=== PATIENT | female | born 1965 | race Caucasian/White ===

== ENCOUNTER 2016-06-03 18:10 | Emergency (ER) | payer BC ==
[~2016-06-03] VITALS: Ht 160 cm; Wt 87.0 kg
[~2016-06-03 18:10] MED LIST: ASPIR-LOW81 MG PO; CALCIUM 500 MG1 EACH PO; CYCLOBENZAPRINE10 MG PO; DAILY VALUE1 EACH PO; DYAZIDE, MA1 CAPSULE PO; GABAPENTIN300 MG PO; HYDROCODON-ACE1 EAC7 PO; LOPRESSOR25 MG PO; MAGNESIUM OXID200 MG PO; MEDROL DOSEPAK4 MG PO; SYNTHROID150 MCG PO
[2016-06-03 20:05] VITALS: BP 161/99
== END 2016-06-03 20:05 | disposition home or self-care (01) ==
LOC: EME 18:10
DX: I10 Essential (primary) hypertension (principal); E03.9 Hypothyroidism, unspecified; Z88.0 Allergy status to penicillin
CPT/HCPCS: 99281; 99284

== ENCOUNTER 2016-07-11 13:42 | Emergency (ER) | payer BC ==
[~2016-07-11] VITALS: Ht 160 cm; Wt 83.3 kg
[2016-07-11] MEDS ORDERED: LOPRESSOR50 MG PO (15:13)
[2016-07-11] MEDS ORDERED: CYTOMEL5 MCG PO (15:14)
[2016-07-11 18:40] VITALS: BP 156/96
== END 2016-07-11 18:46 | disposition home or self-care (01) ==
LOC: EME 13:42
DX: I10 Essential (primary) hypertension (principal); M54.12 Radiculopathy, cervical region; E03.9 Hypothyroidism, unspecified; Z98.1 Arthrodesis status; Z87.891 Personal history of nicotine dependence
CPT/HCPCS: 70450; 72125; 99281; 99284

== ENCOUNTER 2016-11-18 06:42 | Emergency (ER) | payer BC ==
[~2016-11-18] VITALS: Ht 160 cm; Wt 80.8 kg
[~2016-11-18 06:42] MED LIST changes: +CYTOMEL5 MCG PO; +LOPRESSOR50 MG PO
[2016-11-18] MEDS ORDERED: AMLODIPINE BESYL5 MG PO (07:14)
[2016-11-18] MEDS ORDERED: DEBLITANE0.35 MG PO (07:14)
[2016-11-18 07:24] LABS: HEMATOCRIT 43.9 % (36.0-46.0); MCV 90.9 FL (83-99); MEAN PLAT.VOLUME 11.2 uM^3 (9.5-12.4); PLATELET COUNT 237 K/uL (156-360); RBC DIS.WIDTH-CV 12.2 % (11.8-14.6); RBC DIS.WIDTH-SD 40.6 % (39-53); RED BLOOD COUNT 4.83 M/uL (3.80-5.20); WHITE BLOOD COUNT 7.8 K/uL (4.1-10.2)
[2016-11-18 07:27] LABS: ADD MIUA? YES; BILIRUBIN NEGATIVE; BLOOD MODERATE; COLOR STRAW ((YELLOW)); GLUCOSE (STRIP) NEGATIVE; KETONES NEGATIVE; LEUKOCYTES NEGATIVE; NITRITE NEGATIVE; PROTEIN (STRIP) NEGATIVE; SPECIFIC GRAVITY 1.003 (1.000-1.030); UROBILINOGEN 0.2 MG/DL (0.2-1.0)
[2016-11-18 07:30] LABS: BACTERIA NONE SEEN /HPF; EPITHELIAL CELLS NONE SEEN /HPF; MUCUS NONE SEEN /LPF; RED BLOOD CELLS 0-5 /HPF (0-5); UCUL ADDED? NO; WHITE BLOOD CELLS 0-5 /HPF (0-5)
[2016-11-18 08:10] LABS: ANION GAP 10 MEQ/L (2-14); CHLORIDE 105 MEQ/L (99-109); POTASSIUM 3.9 MEQ/L (3.7-5.4); SAMPLE HEMOLYSIS CHECK 0; SAMPLE ICTERIC CHECK 0; SAMPLE LIPEMIA CHECK 0; SODIUM 140 MEQ/L (136-147); TOTAL BILIRUBIN 0.6 MG/DL (0.0-1.0)
[2016-11-18 08:16] LABS: ALKALINE PHOSPHATASE 60 IU/L (3-129); GFR ESTIMATE (CALCULATED) > 59 mL/min/; GLUCOSE 97 mg/dL (70-99); UREA NITROGEN (BUN) 11 mg/dL (9-23)
[2016-11-18 08:18] LABS: QUANTITATIVE HCG < 4.0 MIU/ML
[2016-11-18] MEDS ORDERED: NAPROSYN500 MG PO (09:49)
[2016-11-18 10:22] VITALS: BP 117/86
== END 2016-11-18 10:27 | disposition home or self-care (01) ==
LOC: EME 06:42
DX: N93.8 Other specified abnormal uterine and vaginal bleeding (principal); R10.32 Left lower quadrant pain; I10 Essential (primary) hypertension; E03.9 Hypothyroidism, unspecified; Z87.891 Personal history of nicotine dependence; Z98.1 Arthrodesis status
CPT/HCPCS: 74177; 80053; 81003; 84702; 85027; 99281; 99285; J7030

== ENCOUNTER 2017-09-01 06:48 | Emergency (ER) | payer BC ==
[~2017-09-01] VITALS: Ht 160 cm; Wt 79.6 kg
[~2017-09-01 06:48] MED LIST changes: +AMLODIPINE BESYL5 MG PO; +DEBLITANE0.35 MG PO; +NAPROSYN500 MG PO
[2017-09-01] MEDS ORDERED: BACTRIM,SEPT1 TABLET PO (07:09)
[2017-09-01 07:43] VITALS: BP 146/86
== END 2017-09-01 07:44 | disposition home or self-care (01) ==
LOC: EME 06:48
DX: L03.811 Cellulitis of head [any part, except face] (principal); W57.XXXA Bitten or stung by nonvenomous insect and other nonvenomous arthropods, initial encounter; I10 Essential (primary) hypertension; E03.9 Hypothyroidism, unspecified; Z87.891 Personal history of nicotine dependence; Z88.0 Allergy status to penicillin
CPT/HCPCS: 99281; 99284